=== PATIENT | female | born 1940 | race Two or more races ===

== ENCOUNTER 2017-12-07 07:40 | Outpatient (CLI) | payer OTHER ==
[~2017-12-07] VITALS: Ht 152.4 cm; Wt 71.2 kg
[~2017-12-07 07:40] MED LIST: ATENOLOL25 MG PO; COZAAR50 MG PO; GABAPENTIN300 MG PO; GASTRACE CAPSU1 EACH PO; SINGULAIR10 MG PO; SYNTHROID100 MCG PO; ZANTAC300 MG PO
== END 2017-12-07 08:00 | disposition home or self-care (01) ==
LOC: OFIC 805 07:40
DX: J37.0 Chronic laryngitis (principal); J31.0 Chronic rhinitis; H90.3 Sensorineural hearing loss, bilateral

== ENCOUNTER 2018-02-22 07:46 | Outpatient (CLI) | payer OTHER ==
[~2018-02-22] VITALS: Ht 152.4 cm; Wt 71.2 kg
== END 2018-02-22 08:00 | disposition home or self-care (01) ==
LOC: OFIC 805 07:46
DX: J37.0 Chronic laryngitis (principal); J31.0 Chronic rhinitis; H90.3 Sensorineural hearing loss, bilateral

== ENCOUNTER 2019-04-20 09:14 | Outpatient (CLI) | payer OTHER | END 2019-04-20 09:18 | disposition home or self-care (01) | LOC: TOM 09:14 | DX: K76.89 Other specified diseases of liver (principal); R10.84 Generalized abdominal pain; R97.8 Other abnormal tumor markers | CPT/HCPCS: 74160; Q9965 ==

== ENCOUNTER 2019-04-23 09:14 | Outpatient (CLI) | payer OTHER | END 2019-04-23 09:16 | disposition home or self-care (01) | LOC: RAD 09:14 | DX: R05 Cough (principal) ==

== ENCOUNTER 2021-09-09 10:46 | Outpatient (CLI) | payer OTHER | END 2021-09-09 10:53 | disposition home or self-care (01) | LOC: RAD 10:46 | PROVIDERS: ATTEND Physical Medicine & Rehabilitation | DX: M25.552 Pain in left hip (principal) ==

== ENCOUNTER 2021-09-25 10:52 | Outpatient (CLI) | payer OTHER | END 2021-09-25 10:55 | disposition home or self-care (01) | LOC: RAD 10:52 | PROVIDERS: ATTEND Internal Medicine Pulmonary Disease | DX: R05.3 Chronic cough (principal) ==

== ENCOUNTER 2021-11-04 11:14 | Outpatient (CLI) | payer OTHER | END 2021-11-04 11:22 | disposition home or self-care (01) | LOC: TOM 11:14 | PROVIDERS: ATTEND Internal Medicine Pulmonary Disease | DX: R93.89 Abnormal findings on diagnostic imaging of other specified body structures (principal); C50.919 Malignant neoplasm of unspecified site of unspecified female breast; R05.9 Cough, unspecified ==

== ENCOUNTER 2022-06-30 07:50 | Outpatient (CLI) | payer OTHER | END 2022-06-30 08:38 | disposition home or self-care (01) | LOC: NUCLEAR 07:50 | PROVIDERS: ATTEND Internal Medicine Cardiovascular Disease | DX: I73.9 Peripheral vascular disease, unspecified (principal) ==

== ENCOUNTER 2022-10-18 07:51 | Outpatient (CLI) | payer OTHER | END 2022-10-18 07:53 | disposition home or self-care (01) | LOC: NUCLEAR 07:51 | DX: I87.2 Venous insufficiency (chronic) (peripheral) (principal) ==

== ENCOUNTER 2022-11-25 11:58 | Outpatient (CLI) | payer OTHER | END 2022-11-25 12:20 | disposition home or self-care (01) | LOC: LAB 11:58 | PROVIDERS: ATTEND Radiology Diagnostic Radiology | DX: R55 Syncope and collapse (principal) ==

== ENCOUNTER 2022-12-03 07:19 | Outpatient (CLI) | payer OTHER | END 2022-12-03 08:00 | disposition home or self-care (01) | LOC: TOM 07:19 | DX: R55 Syncope and collapse (principal) | CPT/HCPCS: 70470; Q9965 ==

== ENCOUNTER 2022-12-06 08:10 | Outpatient (CLI) | payer OTHER | END 2022-12-06 08:13 | disposition home or self-care (01) | LOC: NUCLEAR 08:10 | DX: R55 Syncope and collapse (principal) ==

== ENCOUNTER 2023-10-25 09:12 | Outpatient (CLI) | payer OTHER ==
[2023-10-25 10:39] LABS: CREATININE SERUM 0.85 mg/dL (0.55-1.02)
== END 2023-10-25 09:17 | disposition home or self-care (01) ==
LOC: LAB 09:12
DX: R91.8 Other nonspecific abnormal finding of lung field (principal)

== ENCOUNTER 2023-10-25 10:32 | Outpatient (CLI) | payer OTHER | END 2023-10-25 10:36 | disposition home or self-care (01) | LOC: TOM 10:32 | PROVIDERS: ATTEND Obstetrics & Gynecology | DX: N85.8 Other specified noninflammatory disorders of uterus (principal); N85.00 Endometrial hyperplasia, unspecified; R91.8 Other nonspecific abnormal finding of lung field | CPT/HCPCS: 71260; 76830; Q9965 ==